=== PATIENT | female | born 1995 | race American Indian/Alaskan Native ===

== ENCOUNTER 2022-01-19 07:31 | Emergency (ER) | payer OTHER ==
[2022-01-19 09:06] LABS: Basophils # (Auto) 0.1 K/mm3 (0.0-0.1); Basophils % (Auto) 0.8 % (0.0-1.8); Eosinophils % (Auto) 0.1 % (0.0-4.3); Hematocrit 28.7 % (30.3-42.9); Hemoglobin 9.2 gm/dl (10.1-14.3); Lymphocytes % (Auto) 11.4 % (13.4-35.0); Mean Corpuscular HGB Conc 32 % (30-34); Mean Corpuscular Volume 83 fl (79-97); Monocytes # (Auto) 0.3 K/mm3 (0.0-0.8); Monocytes % (Auto) 3.1 % (0.0-7.3); Platelet Count 205 K/mm3 (140-440); Red Blood Count 3.47 M/mm3 (3.65-5.03); Red Cell Distribution Width 17.3 % (13.2-15.2)
[2022-01-19 09:12] LABS: Calcium 8.8 mg/dL (8.4-10.2)
[2022-01-19] MEDS ORDERED: hydrALAZINE 20 MG/1 ML INJ IV ONE (09:53)
--- NOTE | 2022-01-19 10:02 | Emergency Department Report ---
ED General Adult HPI - General Chief complaint: Hypoglycemia Stated complaint: HYPOGLYCEMIA Time Seen by Provider: 01/19/22 09:10 Source: patient, EMS Mode of arrival: Stretcher Limitations: No Limitations - History of Present Illness Initial comments: Patient is a 26-year-old female with history of insulin-dependent diabetes brought in by EMS today for altered mental status. She was reportedly drooling and responded only to pain. EMS arrived with initial fingerstick of 23. She was given IM glucagon and D10 in route. - Related Data Allergies Allergy/AdvReac Type Severity Reaction Status Date / Time No Known Allergies Allergy Unverified 01/19/22 10:40 ED Review of Systems ROS: Stated complaint: HYPOGLYCEMIA Other details as noted in HPI Comment: Unobtainable due to pts medical conditions ED Past Medical Hx - Past Medical History Hx Diabetes: Yes ED Physical Exam - General Limitations: No Limitations General appearance: alert, in no apparent distress - Head Head exam: Present: atraumatic, normocephalic - Respiratory Respiratory exam: Present: normal lung sounds bilaterally. Absent: respiratory distress - Cardiovascular Cardiovascular Exam: Present: regular rate, normal rhythm, normal heart sounds - GI/Abdominal GI/Abdominal exam: Present: soft. Absent: distended, tenderness - Neurological Exam Neurological exam: Present: alert, oriented X3 - Psychiatric Psychiatric exam: Present: normal affect, normal mood - Skin Skin exam: Present: warm, dry, intact, normal color ED Course Vital Signs 01/19/22 01/19/22 01/19/22 09:06 09:15 09:31 Blood Pressure 152/103 152/103 O2 Sat by Pulse 92 90 Oximetry 01/19/22 01/19/22 01/19/22 09:45 10:01 10:15 Blood Pressure 163/106 163/106 163/109 O2 Sat by Pulse 98 98 Oximetry 01/19/22 01/19/22 01/19/22 10:31 10:45 11:01 Blood Pressure 163/109 153/102 153/102 O2 Sat by Pulse 98 100 99 Oximetry 01/19/22 01/19/22 01/19/22 11:15 11:30 11:45 Blood Pressure 165/115 147/87 135/76 O2 Sat by Pulse 99 98 100 Oximetry ED Medical Decision Making - Lab Data Result diagrams: 01/19/22 08:18 01/19/22 08:18 - Medical Decision Making H&H 928. On chemistry serum creatinine is 3.8. Patient reports that she is aware of her DEBBY which was discovered last month. States she has an upcoming appointment with comparator operator. Serum glucose is currently 140. Fingerstick repeated an hour later with glucose of 140. Patient stable for discharge home with return precautions. Critical care attestation.: If time is entered above; I have spent that time in minutes in the direct care of this critically ill patient, excluding procedure time. ED Disposition Clinical Impression: Diabetic hypoglycemia Disposition: 01 HOME / SELF CARE / HOMELESS Is pt being admited?: No Condition: Stable Instructions: Diabetes Mellitus Type 2 in Adults (ED), Preventing Hypoglycemia, Blood Glucose Monitoring, Adult Time of Disposition: 12:20
[2022-01-19 12:10] VITALS: BP 135/76
== END 2022-01-19 12:53 | disposition home or self-care (01) ==
LOC: ED 07:31
DX: E16.2 Hypoglycemia, unspecified (principal)
CPT/HCPCS: 36415; 80048; 82962; 84703; 85025; 96374; 99284; J0360